=== PATIENT | female | born 1985 | race Caucasian/White ===

== ENCOUNTER 2018-09-03 19:46 | Emergency (ER) | payer OTHER ==
[~2018-09-03 19:46] MED LIST: CELEXA20 MG PO; FLEXERIL PO; HYDROCODON-ACE1 EAC7 PO; NAPROSYN500 MG PO; TRAMADOL 50 MG50 MG PO
== END 2018-09-03 20:10 ==
LOC: M.ERS 19:46
DX: Z02.89 Encounter for other administrative examinations (principal)